=== PATIENT | male | born 1975 | race Caucasian/White ===

== ENCOUNTER 2025-04-09 10:59 | Outpatient (AMB) | payer OTHER, SELFPAY ==
--- NOTE | 2025-04-09 10:52 | A.OFFPC_ITS ---
Vital Signs 04/09/25 11:00 Height 5 ft 10 in Weight 257 lb BMI 36.9 BP 137/95 H Respiration 16 Pulse 66 Pulse Source Pulse Oximeter Temp 97.7 F Temp Source Temporal Artery Scan Pulse Oximetry (%) 99 Oxygen Delivery Method Room Air Intake Visit Reasons: establish care; dysphagia 2nd to trauma Clinical Resource Coordinator Required: No Accompanied by: Self / Same As Patient Allergies No Known Allergies Allergy (Verified 04/09/25 11:11) Medication List - Last Reconciled 04/09/25 by Connie Daniel PA-C allopurinol 300 mg PO DAILY colchicine 0.3 mg PO DAILY ergocalciferol (vitamin D2) 1,250 mcg PO Q2W omega 5-rgn-amt-fish oil 60-90-500 mg (Fish Oil) 1 cap PO DAILY Tobacco use date assessed: 04/09/25 Dental Screening Dental Screen Date: 04/09/25 Did you have a dental visit in the last 12 months?: Yes Did you have a dental problem in the last 6 months where you did not have access to dental care?: No Was dental information given to patient?: Patient has dentist HPI establish care; dysphagia 2nd to trauma HPI Details The patient is a 49-year-old male presenting to establish a new primary care provider. He would also like to discuss throat discomfort, a mole in the armpit, and hemorrhoids. He reports the throat discomfort originated after an incident involving a lodged needle-like bone while consuming fried chicken several years ago and maintains the discomfort continues without any recent evaluations like endoscopy. He associates flare-ups with his practice of [employer]. The mole in his armpit has developed over the past year, diverging from his typical mole growth patterns. The patient notes having hemorrhoids, with acute exacerbation of symptoms recently, although he denies bleeding. Patient's past medical history includes a longstanding history of chronic kidney disease stage 3, with nephrology monitoring kidney function markers. He's currently on allopurinol, vitamin D supplements, and omega-3 supplements. Social History - Practices [employer], including exposur e to activities involving choke holds - Maintains an exercise regimen, running five times per week [facility] Medical History (Updated 04/09/25 @ 11:43 by Connie Daniel PA-C) Vitamin D deficiency Hyperlipidemia LDL goal <100 Gout BMI 36.0-36.9,adult CKD stage 3b, GFR 30-44 ml/min Hemorrhoid Atypical mole Establishing care with new doctor, encounter for Throat discomfort Family History Father Diabetes Mother Pancreatic cancer Social History Housing: House Alcohol intake: current Alcohol intake frequency: does not drink Patient Tobacco Use Status: Former Tobacco user service: No Current occupational status: employed Cognitive needs: Yes (uses cane when has gout flare up) Hearing needs: No Vision needs: Yes (rx glasses) Questionnaire PHQ-9 Over the last 2 weeks, how often have you been bothered by any of the following problems? 1. Little interest or pleasure in doing things: not at all 2. Feeling down, depressed, or hopeless: not at all 3. Trouble falling or staying asleep, or sleeping too much: not at all 4. Feeling tired or having little energy: not at all 5. Poor appetite or overeating: not at all 6. Feeling bad about yourself - or that you are a failure or have let yourself or your family down: not at all 7. Trouble concentrating on things, such as reading the newspaper or watching television: not at all 8. Moving or speaking so slowly that other people could have noticed. Or the opposite - being so fidgety or restless that you have been moving around a lot more than usual: not at all 9. Thoughts that you would be better off or of hurting yourself in some way: not at all Total score: 0 Depression Screening Interpretation: Negative Depression Screening Done: Yes 88878 - PHQ-9 Billing: Yes Source: Developed by Drs. Trev Smith, Lovely Lan, Tej Riojas and colleagues, with an educational atul from [employer]. Thrive Questionnaire Date Thrive assessed: 04/09/25 I am a: Patient What is your living situation today?: I have a steady place to live Within the past 12 months, did the food you bought not last and you didn't have the money to get more?: Never true Within the past 12 months, did you worry whether your food would run out before you got money to buy more?: Never true Do you have trouble paying for medicines?: No Do you have trouble getting transportation to medical appointments?: No Do you have trouble paying your heating and electricity bill?: No Do you have trouble taking care of your child, family member or friend?: No Do you have trouble with day-to-day activities such as bathing, preparing meals, shopping, managing finances, etc.?: No Are you currently unemployed and looking for a job?: No Are you interested in more education?: No Please select the resources that you would like help with: None THRIVE Score: 0 AUDIT C Alcohol Use Questionnaire (AUDIT-C) 1. How often do you have a drink containing alcohol?: Never 3. How often do you have six or more drinks on one occasion?: Never Total Score: 0 Score Reviewed/Action Taken: No LINDY-7 AMB Questionnaire LINDY-7 Date LINDY - 7 assessed: 04/09/25 Feeling nervous, anxious, or on edge: 0 = Not at all Not being able to stop or control worryin = Not at all Worrying too much about different things: 0 = Not at all Trouble relaxin = Not at all Being so restless that it is hard to sit still: 0 = Not at all Becoming easily annoyed or irritable: 0 = Not at all Feeling afraid as if something awful might happen: 0 = Not at all Total LINDY-7 score (0-4 normal; 5-9 mild; 10-14 moderate; 15-21 severe): 0 Source: Developed by Drs. Trev Smtih, Lovely Lan, Tej Riojas and colleagues, with an educational atul from [employer]. LINDY-7 Assessment Billing LINDY-7 Assessment Tool: LINDY-7 Assessment 04583 Review of Systems Const Details: - ENT: Reports chronic feeling of a foreign object in throat - Gastrointestinal: Denies difficulty swallowing; Reports presence of hemorrhoids without associated bleeding - Skin: Reports atypical mole growth under the right armpit Physical exam (Primary Care) Vital Signs: Last Vital Signs Temp 97.7 F 04/09/25 11:00 Pulse 66 04/09/25 11:00 Resp 16 04/09/25 11:00 BP 137/95 H 04/09/25 11:00 Pulse Ox 99 04/09/25 11:00 Oxygen Delivery Method Room Air 04/09/25 11:00 Care Plan Goal for BP management: <140/90 mildly elevated patient will monitor his blood pressure and return with blood pressure log at his next appoint BMI result Body Mass Index 36.9 BMI Assessment/Plan discussion: High BMI High, discussed plan: lifestyle, weight reduction, dietary, physical activity and alcohol moderation Tobacco/Smoking Status: Tobacco use Status Tobacco use date assessed 04/09/25 04/09/25 10:53 Patient Tobacco Use Status Former Tobacco user 04/09/25 11:06 PHQ-9: PHQ-9 Score PHQ-9: Total score 0 04/09/25 11:06 Depression Screening Interpretation: Negative Thrive Assessment: Date of Thrive Assessment Date Thrive assessed 04/09/25 04/09/25 10:53 Const Other: Appearance: Alert. Oriented X3. No acute distress. Head: Normal external exam. Normocephalic. Atraumatic. Eyes: Pupils are equal, round, and reactive to light. Extraocular movements intact. Conjunctiva and sclera normal. Eyelids normal. Ears: External auditory canal normal. Tympanic membranes normal. Patient reports feeling a little discomfort in the ear canal. Throat: Pharynx normal. Uvula midline. Moist mucous membranes. Patient reports feeling like there is something on the side of the throat, possibly due to a needle-like bone stuck for years. Neck: Normal inspection. Neck supple. Full range of motion. No adenopathy. Thyroid Normal. No meningeal signs. No neck mass noted. Patient reports discomfort in the neck area. Cardiovascular: Normal heart rate and rhythm. Heart sound normal. No murmurs noted. Pulses normal throughout. Respiratory: No respiratory distress. Painless inspiration. Breath sounds normal. No wheezes/rales/rhonchi noted. Chest nontender. No accessory muscle usage noted or decreased air movement noted. Abdomen: Soft and nontender. No distention noted. No organomegaly noted. Back: No costovertebral angle tenderness. Full range of motion noted. Skin: Skin warm and dry. Normal skin color. Normal skin turgor. No rashes/lesions/lacerations noted. Patient reports a mole under the right armpit that has grown over the past year and appears different. Extremities: No lower extremity edema. Extremities exhibit normal range of motion. Extremities nontender. Neuro: Oriented X 3. No motor deficit. No sensory deficit. Reflexes normal. Coding Level of Care Code New Pt Level 4 (67001) Complex EM visit Add On G2211 Diagnoses Establishing care with new doctor, encounter for Z76.89 Throat discomfort R07.0 Atypical mole D22.9 Hemorrhoid K64.9 CKD stage 3b, GFR 30-44 ml/min N18.32 BMI 36.0-36.9,adult Z68.36 Gout M10.9 Vitamin D deficiency E55.9 Additional Codes PHQ-9 - 65051 - PHQ-9 Billing: Yes ([id number]) LINDY-7 Assessment Billing - LINDY-7 Assessment Tool: LINDY-7 Assessment 39654 ([id number]) Assessment & Plan Assessment & Plan (1) Establishing care with new doctor, encounter for: Code(s): Z76.89 - Persons encountering health services in other specified circumstances Category: Medical (2) Throat discomfort: Code(s): R07.0 - Pain in throat Category: Medical Plan: Plan: Schedule a CT scan of the neck to check for the presence of foreign body. Evaluate kidney function for the use of IV contrast. Possible refer to ENT if a foreign object is found. Condition is chronic and stable continue to monitor. (3) Atypical mole: Code(s): D22.9 - Melanocytic nevi, unspecified Category: Medical Plan: Plan: Referred to dermatology to evaluate abnormal mole for further assessment and management. Condition is chronic and stable continue to monitor. (4) Hemorrhoid: Code(s): K64.9 - Unspecified hemorrhoids Category: Medical Plan: Plan: Conservative management with sitz baths and topical treatment. Monitor for symptoms; consider surgery if no improvement. I discussed this case with Dr. Ramsey the general surgeon reported patient can call for an appointment next week. (5) CKD stage 3b, GFR 30-44 ml/min: Code(s): N18.32 - Chronic kidney disease, stage 3b Category: Medical Plan: Plan: Monitor renal function, coordinate with check cashier, and ensure testing suitability. Condition is chronic and stable will continue to monitor. (6) BMI 36.0-36.9,adult: Code(s): Z68.36 - Body mass index [BMI] 36.0-36.9, adult Category: Medical Plan: Patient to improve diet and exercise regimen. Condition is chronic and stable will continue to monitor. (7) Gout: Code(s): M10.9 - Gout, unspecified Category: Medical Plan: Plan: Continue allopurinol therapy; monitor and adjust management as needed. Condition is chronic and stable continue to monitor. (8) Vitamin D deficiency: Code(s): E55.9 - Vitamin D deficiency, unspecified Category: Medical Plan: Plan: Maintain supplementation and check levels periodically. Condition is chronic and stable continue to monitor. Plan Plan Patient was informed and verbally consented to the use of an ambient scribe for clinic note documentation during this visit. 1. Throat Discomfort Plan: Schedule a CT scan of the neck to check for the presence of foreign body. Evaluate kidney function for the use of IV contrast. Possible refer to ENT if a foreign object is found. 2. Melanocytic Nevus Of Axilla Plan: Referred to dermatology to evaluate abnormal mole for further assessment and management. 3. Hemorrhoids With Thrombosis Plan: Conservative management with sitz baths and topical treatment. Monitor for symptoms; consider surgery if no improvement. 4. Chronic Kidney Disease Stage 3 Plan: Monitor renal function, coordinate with check cashier, and ensure testing suitability. 5. Gout Plan: Continue allopurinol therapy; monitor and adjust management as needed. 6. Vitamin D Deficiency Plan: Maintain supplementation and check levels periodically. I discussed with the patient the diagnostic plan to include a CT scan to evaluate his throat discomfort and the potential foreign object. We reviewed the referral for dermatologic evaluation for his atypical axillary mole. We addressed hemorrhoidal management with conservative approaches recommended initially, involving sitz baths and topical medications, and the potential need for surgical intervention if symptoms persist. I highlighted kidney considerations amid his chronic condition, specifically assessing suitability for imaging contrast media. I outlined the chronic management approach for gout, and vitamin D deficiency through ongoing medication and lifestyle adjustments. Follow-up plans were developed with an emphasis on symptom monitoring and scheduling timely subsequent appointments post-interventions. The necessity of avoidance of NSAIDs and proper self-monitoring was emphasized. Orders: Orders C Reactive Protein Today Z00.00 - Encounter for general adult medical examination without abnormal findings Lipid Panel Today Z00.00 - Encounter for general adult medical examination without abnormal findings Magnesium Today Z00.00 - Encounter for general adult medical examination without abnormal findings TSH reflex Free T4 Today Z00.00 - Encounter for general adult medical examination without abnormal findings CT soft tissue neck w IV con Today R07.0 - Pain in throat, Z76.89 - Persons encountering health services in other specified circumstances PSA,Total (Free>4and<10) Today Z00.00 - Encounter for general adult medical examination without abnormal findings Hemoglobin A1c Today Z00.00 - Encounter for general adult medical examination without abnormal findings Liver Panel Today Z00.00 - Encounter for general adult medical examination without abnormal findings Vitamin B12 and Folate Today Z00.00 - Encounter for general adult medical examination without abnormal findings Vitamin D 25-OH Total Today Z00.00 - Encounter for general adult medical examination without abnormal findings Comprehensive [place]. Panel Fast Today Z00.00 - Encounter for general adult medical examination without abnormal findings Complete Blood Count Auto Diff Today Z00.00 - Encounter for general adult medical examination without abnormal findings Referrals Dermatology Referral D22.9 - Melanocytic nevi, unspecified General Surgery Referral K64.9 - Unspecified hemorrhoids Medications: New hydrocortisone-pramoxine 1-1 % (Proctofoam HC) 1 appl MO QID PRN 10 grams 3RF hemorrhoids Patient Instructions: - Schedule CT scan and send us any recent blood work records. - Call dermatology regarding mole evaluation appointment. - Use sitz baths and topical agents to help hemorrhoids; avoid NSAIDs. - Maintain current medication regimen. - Follow up with all ongoing healthcare needs including kidney and gout management. - Monitor symptoms closely and seek care for any changes or worsening conditions. - Return for follow-up after diagnostic studies and procedures.
[2025-04-09 11:00] VITALS: BP 137/95; PULSE 66; RESP 16; TEMP 36.5; O2SAT 99; BMI 36.9
--- OUTSIDE RECORDS SUMMARY | 2025-04-09 11:04 | XMS_ITS | Clinical Summary ---
Author Organization [facility] Facility Address [address] [place] [address] Care Team Providers Care Medical Transcriber Name Role Phone Trev Norman MD Primary Care Provider Allergies No known active allergies Medications Multiple Vitamins-Minera ls (VITAMIN D3 COMPLETE PO) Take by mouth Active colchicine 0.6 MG tablet Active ergocalciferol 1.25 MG (09037 UT) capsule TAKE 1 CAPSULE (50,000 UNITS TOTAL) BY MOUTH EVERY 14 DAYS 6 capsule 1 08/04/2024 Active lisinopril 10 MG tablet Take 1 tablet (10 mg total) by mouth 1 (one) time each day 90 tablet 5 12/31/2024 6 Active allopurinol (ZYLOPRIM) 300 MG tablet TAKE 1 TABLET BY MOUTH 1 TIME EACH DAY. 90 tablet 1 02/11/2025 Active Active Problems Problem Noted Date Diagnosed Date Chronic kidney disease due to benign hypertensio n 10/03/2023 Stage 3a chronic kidney disease 04/05/2022 Chronic kidney disease stage 3 01/26/2021 Gout 01/26/2021 Encounters Date Type Department Care Team Description 02/11/2025 Refill [facility] [address] [facility] [address] [place] [phone] Jordan Sanchez MD from Last 3 Months Family History Medical History Relation Comments Kidney disease Sibling 1 kidney Relation Status Comments Sibling Social History Tobacco Use Types Packs/Day Years Used Date Smoking Tobacco: Former Cigarettes Smokeless Tobacco: Never Tobacco Cessation:Counseling Given: Not Answered Comments:Smoking History Info:Every day Alcohol Use Standard Drinks/Week Comments Never 0 (1 standard drink = 0.6 oz pur e alcohol) Sex and Gender Information Value Date Recorded Sex Assigned at Male 10/03/2023 7:59 AM EST Legal Sex Male 5:26 PM EST Gender Identity Male 10/03/2023 7:59 AM EST Sexual Orientation Straight 10/03/2023 7: 59 AM EST Last Filed Vital Signs Vital Sign Reading Time Taken Comments Blood Pressure 120/82 12/31/2024 1:19 PM EST Pulse 81 12/31/2024 1:19 PM EST Temperature - - Respiratory Rate - - Oxygen Saturation 96% 12/31/2024 1:19 PM EST Inhaled Oxygen Concentration - - Weight 117 kg (258 lb 9.6 oz) 12/31/2024 1:19 P M EST Height 182.9 cm (6') 01/28/2020 12:00 PM EDT Body Mass Index 35.07 01/28/2020 12:00 PM EDT Plan of Treatment Upcoming Encounters Date Type Department Care Team (Late st Contact Info) Description 01/06/2026 1:00 PM EST Office Visit [facility] [address] [phone] Jordan Sanchez MD [address] [phone] Health Maintenance Due Date Last Done Comments Hepatitis B Vaccine (1 of 3 - 19+ 3-dose series) 1995 Pneumococcal Vaccine: Peds ( 0 to 5 Years) and At-Risk Patients (6 to 49 Years) (2 of 2 - PCV) 04/15/2015 04/15/2014 Influenza Vaccine (Season Ended) 2025 08/23/2021, 10/16/2016, 08/26/2015 Pneumococcal Vaccine: 50+ Years Discontinued 4 Insurance [place] [employer] Care Teams Medical Transcriber Relationship Specialty Start Date End Date Trev Norman MD [address] [place] [phone] PCP - General 11/28/20
== END 2025-04-09 11:35 | disposition home or self-care (01) ==
LOC: HO.HMCSH 10:59
PROVIDERS: PCP Internal Medicine; Visit Provider Physician Assistant Medical
DX: Z76.89 Persons encountering health services in other specified circumstances (principal); R07.0 Pain in throat; D22.9 Melanocytic nevi, unspecified; K64.9 Unspecified hemorrhoids; N18.32 Chronic kidney disease, stage 3b; Z68.36 Body mass index [BMI] 36.0-36.9, adult; M10.9 Gout, unspecified; E55.9 Vitamin D deficiency, unspecified

== ENCOUNTER → 2025-04-09 10:59 | Outpatient (BNVA) | payer OTHER, SELFPAY | PROVIDERS: PCP Internal Medicine; Visit Provider Physician Assistant Medical | DX: Z76.89 Persons encountering health services in other specified circumstances (principal); R07.0 Pain in throat; D22.5 Melanocytic nevi of trunk; K64.9 Unspecified hemorrhoids; N18.32 Chronic kidney disease, stage 3b; M10.9 Gout, unspecified; E55.9 Vitamin D deficiency, unspecified; Z13.30 Encounter for screening examination for mental health and behavioral disorders, unspecified | CPT/HCPCS: 96127 ==

== ENCOUNTER 2025-05-17 11:01 | Outpatient (REF) | payer OTHER, SELFPAY ==
--- OUTSIDE RECORDS SUMMARY | 2025-05-17 11:55 | XMS_ITS | Clinical Summary ---
Author Organization [facility] Facility Address [address] [facility] [address] [place] [id number] Care Team Providers Care Senior Applications Architect Name Role Phone Trev Norman MD Primary Care Provider [phone] Allergies No known active allergies Medications Multiple Vitamins-Minera ls (VITAMIN D3 COMPLETE PO) Take by mouth Active colchicine 0.6 MG tablet Active ergocalciferol 1.25 MG (86757 UT) capsule TAKE 1 CAPSULE (50,000 UNITS [...] kidney disease stage 3 01/26/2021 Gout 01/26/2021 Family History Medical History Relation Comments Kidney [...] kg (258 lb 9.6 oz) 12/31/2024 1:19 PM EST Height 182.9 cm (6') 01/28/2020 12:00 PM EDT Body Mass Index 35.07 01/28/2020 12:00 PM EDT Plan of Treatment Upcoming Encounters Date Type Department Care Team (Late st Contact Info) Description 01/06/2026 1:00 PM EST Office Visit [facility] [address] [phone] Jordan Sanchez MD [address] [phone] Health Maintenance Due Date Last Done Comments Hepatitis B Vaccine (1 of 3 - 19+ 3-dose series) 1995 Pneumococcal Vaccine: Peds ( 0 to 5 Years) and At-Risk Patients (6 to 49 Years) (2 of 2 - PCV) 04/15/2015 04/15/2014 Influenza Vaccine (Season Ended) 2025 08/23/2021, 10/16/2016, 08/26/2015 Pneumococcal Vaccine: 50+ Years Discontinued 4 Insurance [facility] Care Teams Senior Applications Architect Relationship Specialty Start Date End Date Trev Norman MD [address] [place] [phone] PCP - General 11/28/20
[2025-05-17 13:24] LABS: MANUAL DIFF FLAG NO
[2025-05-17 13:33] LABS: Basophils Absolute Auto 0.1 X10*3/uL (0.0-0.2); Basophils Percent Auto 0.8 % (0-2); Eosinophils Absolute Auto 0.1 X10*3/uL (0.0-0.4); Eosinophils Percent Auto 1.6 % (0-4); Hematocrit 45.9 % (42.0-52.0); Hemoglobin 15.5 g/dl (14.0-18.0); Imm Gran Abs Auto 0.05 X10*3/uL (0.00-0.03); Imm Gran Pct Auto 0.7 % (0.0-0.4); Lymphocytes Absolute Auto 2.9 X10*3/uL (1.2-4.9); Mean Corpuscular HGB Conc 33.8 g/dl (31.0-36.0); Mean Corpuscular Hemoglobin 31.4 pg (27.0-33.0); Mean Corpuscular Volume 92.9 fL (80.0-98.0); Mean Platelet Volume 10.5 fL (9.4-12.4); Monocytes Absolute Auto 0.7 X10*3/uL (0.1-1.2); Monocytes Percent Auto 8.6 % (2-11); Neutrophils Absolute Auto 3.9 x10*3/uL (2.0-8.3); Neutrophils Percent Auto 50.3 % (45-73); Platelet Count 213 X10*3/uL (160-400); Red Blood Count 4.94 X10*6/uL (4.60-5.80); Red Cell Distribution Width 13.2 % (11.0-16.0); White Blood Count 7.7 X10*3/uL (4.8-10.8)
[2025-05-17 13:41] LABS: Estimated Average Glucose 105 mg/dL; Hemoglobin A1c % 5.3 % (<6.0)
[2025-05-17 13:50] LABS: Alanine Aminotransferase 62 U/L (0-40); Albumin Level 4.4 g/dL (3.5-5.0); Alkaline Phosphatase 80 U/L (39-117); Anion Gap 12 (12-20); Aspartate Amino Transferase 36 U/L (5-37); Bilirubin Direct 0.2 mg/dL (0.0-0.5); Bilirubin Total 0.6 mg/dL (0.0-1.0); Blood Urea Nitrogen 27 mg/dL (9-16); C Reactive Protein 0.33 mg/dL (< or = 0.50); Calcium 9.2 mg/dL (8.4-10.2); Carbon Dioxide 24 mmol/L (22-29); Chloride 108 mmol/L (96-108); Cholesterol 237 mg/dL (<200); Estimated Glomerular Filt Rate 50; Glucose Fasting 98 mg/dL (60-99); HDL Cholesterol 42 mg/dL (>40); LDL Cholesterol Calculated 156 mg/dL (<100); Magnesium 2.1 mg/dL (1.6-2.6); Potassium 4.3 mmol/L (3.3-5.1); Sodium 140 mmol/L (135-145); Total Protein 7.7 g/dL (6.5-8.0); Triglycerides 196 mg/dL (<150)
[2025-05-17 14:00] LABS: PSA,Total (Free>4and<10) 2.03 ng/mL (0.00-4.00)
[2025-05-17 14:14] LABS: Folate 10.2 ng/mL (> or = 4.0); Vitamin B12 664 pg/mL (200-900)
[2025-05-17 14:22] LABS: TSH reflex Free T4 1.57 uIU/mL (0.32-4.0); Vitamin D 25-OH Total 47.4 ng/mL (>30)
== END 2025-05-17 11:02 | disposition home or self-care (01) ==
LOC: HO.HMGCLDS 11:01
PROVIDERS: PCP Physician Assistant Medical; Visit Provider Physician Assistant Medical
DX: Z00.00 Encounter for general adult medical examination without abnormal findings (principal); Z12.5 Encounter for screening for malignant neoplasm of prostate; Z13.1 Encounter for screening for diabetes mellitus; Z13.6 Encounter for screening for cardiovascular disorders
CPT/HCPCS: 36415; 80053; 80061; 80076; 82248; 82306; 82607; 82746; 83036; 83735; 84153; 84443; 85025; 86140

== ENCOUNTER 2025-05-26 15:00 | Outpatient (REF) | payer OTHER, SELFPAY ==
--- NOTE | ~2025-05-26 | CT_ITS ---
CLINICAL HISTORY: R07.0 - Pain in throat Exam: CT soft tissue neck with IV contrast Comparison: None provided Findings: No abnormal soft tissue mass is identified within the neck. The soft tissues of the nasopharynx, oropharynx, hypopharynx and larynx are within normal limits. The parotid, submandibular and thyroid glands demonstrate nothing unusual. Unremarkable vasculature. No lymphadenopathy. Limited intracranial evaluation demonstrates no acute finding. The visualized paranasal sinuses and mastoid air cells are essentially clear. Lung apices are unremarkable allowing for moderate motion blurring. There are mild osseous degenerative changes, no lytic or blastic lesions are evident. Impression: No acute finding. No CT finding to account for throat pain. This document has been electronically signed by: Pretty Betancourt MD on 05/28/2025 14:59:02
--- OUTSIDE RECORDS SUMMARY | 2025-05-26 15:25 | XMS_ITS | Data Portability ---
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 Hearing? down--not to level of hearing aids yet. Not available 11/02/2022 10:16:26 03/13/2024 03/13/2024 Only needs once a year visits as has tex mcdonnell uses occasionally and sees Gant in wintertime 2023 works out core 20 mins weekly training aleja moreira Not available 03/13/2024 10:42:54 Plan of Treatment Reminders Order Date Submit Date Provider Last Modified By Organization Details Last Modified Time Details Appointments None recorded. Lab uric acid, serum or plasma 2023 [facility], [address] [place] [address], [address], 4 10:01:57 BMP, serum or plasma 2023 024 [facility], [address] [place] [address], [address], 4 10:01:55 HbA1c (hemoglobin A1c), blood 2023 024 [facility], [address] [place] [address], [address], 4 11:54:20 CBC 2023 024 [facility], [address] [facility], [place], [address], 11:01:41 Referral None recorded. Procedures colonoscopy procedure (PROC) 2021 022 [email or web address] [facility], [address] [place], [address], 13:44:18 Surgeries None recorded. Imaging None recorded. Medication Orders lisinopril 10 mg tablet 2022 023 [email or web address] [id number], [address] [place], [address], 4 12:34:09 diltiazem CD 120 mg capsule,ext ended release 24 hr 2022 023 [email or web address] [id number], [address] [place], [address], 11:12:23 Patient TargetsNo targets recorded. Patient Instructions Encounter Date Encounter Id Patient Instructions Last Modified By Organization Details Last Modified Time 11/02/2022 [id number] Well Visit, Ages 18 to 65: Care Instructions Not available 11/02/2022 10:17:07 08/13/2023 [id number] medicines to avoid with kidney disease: care instructions [email or web address] Not available 08/13/2023 10:51:18 high blood pressure: care instructions rvigderman Not available 08/13/2023 10:51:17 learning about high blood pressure rvigderman Not available 08/13/2023 10:51:18 09/02/2023 [id number] high blood pressure: care instructions [email or web address] Not available 09/22/2023 17:06:18 learning about high blood pressure rvigderman Not available 09/22/2023 17:06:18 03/13/2024 [id number] Well Visit, Ages 18 to 65: Care Instructions [email or web address] Not available 03/13/2024 10:45:28 Reason for Referral None Reported. Results Created Date Observation Date Name Description Value Unit Range Abnormal Flag Note LastModifiedBy Organization Detail LastModifiedTime 03/16/20 24 03/16/2024 CBC WBC 7.62 K/ L 4.23-9 .07 Not Available [address], [address], 03/16/2024 11:01:41 03/16/20 24 03/16/2024 CBC RBC 4.87 M/ L 4.63-6 .08 Not Available [address], [address], 03/16/2024 11:01:41 03/16/20 24 03/16/2024 CBC HGB 15.4 g/dL 13.7-1 7.5 Not Available [address], [address], 03/16/2024 11:01:41 03/16/20 24 03/16/2024 CBC HCT 45.5 % 40.1-5 1.0 Not Available [address], [address], 03/16/2024 11:01:41 03/16/20 24 03/16/2024 CBC MCV 93.4 fL 79.0-9 2.2 high Not Available [address], [address], 03/16/2024 11:01:41 03/16/20 24 03/16/2024 CBC MCH 31.6 pg 25.7-3 2.2 Not Available [address], [address], 03/16/2024 11:01:41 03/16/20 24 03/16/2024 CBC MCHC 33.8 g/dL 32.3-3 6.5 Not Available [address], [address], 03/16/2024 11:01:41 03/16/20 24 03/16/2024 CBC plt 222 K/ L 163-33 7 Not Available [address], [address], 03/16/2024 11:01:41 03/16/20 24 03/16/2024 CBC MPV 10.6 fL 9.4-12 .4 Not Available [address], [address], 03/16/2024 11:01:41 03/16/20 24 03/16/2024 CBC neut% 45.4 % 34.0-6 7.9 Not Available [address], [address], 03/16/2024 11:01:41 03/16/20 24 03/16/2024 CBC neut# 3.46 1.78-5 .38 Not Available [address], [address], 03/16/2024 11:01:41 03/16/20 24 03/16/2024 CBC lymph % 42.0 % 21.8-5 3.1 Not Available [address], [address], 03/16/2024 11:01:41 03/16/20 24 03/16/2024 CBC lymph # 3.20 K/ L 1.32-3 .57 Not Available [address], [address], 03/16/2024 11:01:41 03/16/20 24 03/16/2024 CBC mono% 10.4 % 5.3-12 .2 Not Available [address], [address], 03/16/2024 11:01:41 03/16/20 24 03/16/2024 CBC mono# 0.79 0.30-0 .82 Not Available [address], [address], 03/16/2024 11:01:41 03/16/20 24 03/16/2024 CBC eo% 1.0 % 0.8-7. 0 Not Available [address], [address], 03/16/2024 11:01:41 03/16/20 24 03/16/2024 CBC eo# 0.08 0.04-0 .54 Not Available [address], [address], 03/16/2024 11:01:41 03/16/20 24 03/16/2024 CBC baso% 0.5 % 0.2-1. 2 Not Available [address], [address], 03/16/2024 11:01:41 03/16/20 24 03/16/2024 CBC baso# 0.04 0.00-0 .08 Not Available [address], [address], 03/16/2024 11:01:41 03/16/20 24 03/16/2024 CBC RDW-CV 13.2 % 11.6-1 4.4 Not Available [address], [address], 03/16/2024 11:01:41 03/16/20 24 03/16/2024 CBC Ig% 0.700 % 0.000- 1.500 Ig % >0.5 Indic ates possi ble Left Shift Not Available [address], [address], 03/16/2024 11:01:41 03/16/20 24 03/16/2024 CBC Ig# 0.050 0.000- 0.093 Not Available [address], [address], 03/16/2024 11:01:41 03/16/20 24 03/16/2024 CBC NRBC% 0.0 % 0.0-0. 2 Not Available [address], [address], 03/16/2024 11:01:41 03/16/20 24 03/16/2024 CBC NRBC# 0.000 0.000- 0.012 Not Available [address], [address], 03/16/2024 11:01:41 03/16/20 24 03/16/2024 HGB A1C hemoglobin A1C 5.4 % 4.8-6. 0 Goal: <7% in Patie nts with Diabe yamel An A1c betwe en 5.7-6 .4% is ident ified as pre-d iabet es and sugge sts risk for progr essio n to diabe yamel Two a1c value s of 6.5% or highe r is consi stent with a diagn osis of diabe yamel but may need furth er confi rmati on Not Available [address], [address], 03/16/2024 11:54:20 03/16/20 24 03/16/2024 HGB A1C estimated average glucose 108.3 mg/dL Not Available [address], [address], 03/16/2024 11:54:20 03/16/20 24 03/17/2024 BASIC METAB OLIC PANEL glucose 99 mg/dL 70-100 Not Available [address], [address], 03/17/2024 10:01:55 03/16/20 24 03/17/2024 BASIC METAB OLIC PANEL BUN 22 mg/dL 7-18 high Not Available [address], [address], 03/17/2024 10:01:55 03/16/20 24 03/17/2024 BASIC METAB OLIC PANEL creatinine 1.7 mg/dL 0.8-1. 3 high Not Available [address], [address], 03/17/2024 10:01:55 03/16/20 24 03/17/2024 BASIC METAB OLIC PANEL B/C 12.9 ratio Not Available [address], [address], 03/17/2024 10:01:55 03/16/20 24 03/17/2024 BASIC METAB OLIC PANEL GFR 49.4 mL/mi n abnormal >=60m L/min - Merna l or midly reduc ed <60mL /min- Decre ased kidne y funct ion <15mL /min - Kidne y failu re [facility] calcu lates estim ated Glome rular Filtr ation Rate (eGFR ) using the Chron ic Kidne y Disea se Epide miolo gy Colla borat ion (CKD- EPI) Equat ion (Donaldo baron et. al 2020) as recom mega d by the Natio nal Kidne y Found ation . eGFR is based on age, serum creat inine , and sex. CKD-E PI does not calcu late eGFR by race, does not apply to child constance (age <18 years ), and shoul d not be used in pregn parmjit. Not Available [address], [address], 03/17/2024 10:01:55 03/16/20 24 03/17/2024 BASIC METAB OLIC PANEL sodium 140 mmol/ L 136-14 5 Not Available [address], [address], 03/17/2024 10:01:55 03/16/20 24 03/17/2024 BASIC METAB OLIC PANEL potassium 5.0 mmol/ L 3.5-5. 1 Not Available [address], [address], 03/17/2024 10:01:55 03/16/20 24 03/17/2024 BASIC METAB OLIC PANEL chloride 103 mmol/ L 96-107 Not Available [address], [address], 03/17/2024 10:01:55 03/16/20 24 03/17/2024 BASIC METAB OLIC PANEL anion gap 12.9 5.0-15 .0 Not Available [address], [address], 03/17/2024 10:01:55 03/16/20 24 03/17/2024 BASIC METAB OLIC PANEL CO2 24 mmol/ L 21-32 Not Available [address], [address], 03/17/2024 10:01:55 03/16/20 24 03/17/2024 BASIC METAB OLIC PANEL calcium 9.7 mg/dL 8.5-10 .3 Not Available [address], [address], 03/17/2024 10:01:55 03/16/20 24 03/17/2024 URIC ACID uric acid 8.0 mg/dL 3.5-7. 2 high Not Available [address], [address], 03/17/2024 10:01:57 Result Notes None recorded. Problems Name Problem SNOMED Code Status Onset Date Resolution Date Notes Provider Name and Address Organization Details Recorded Time Secondar y hyperpar athyroid ism 16313917 Active 2018 coded 05/19/19 Wellness Not Available [facility] 0 10:17:15 Atrophy of right kidney 536703195 Active 2021 Bonny Norman MD [address] [place] [address], [address] , [facility] 2 08:58:46 Mixed hyperlip idemia 259947123 Completed 200304/26/2015 Bonny Norman MD [address] [place] [address], [address] , [facility] 5 08:18:26 Benign neoplasm of skin of trunk, excludin g scrotum Completed 200703/25/2013 Bonny Norman MD [address] [place] [address], [address] , [facility] 5 08:18:26 Essentia l hyperten genna 16128055 Completed 200504/26/2015 Bonny Norman MD [address] [place] [address], , [facility] 5 08:18:27 Renal failure syndrome 34735197 Completed 200503/25/2013 Bonny Norman MD [address] [place] [address], , [facility] 5 08:18:27 Chronic kidney disease stage 2 816494494 Completed 200603/25/2013 Bonny Norman MD [address] [place] [address], , [facility] 5 08:18:27 Gout 40145816 Active 2004 Not Available [facility] 0 10:17:15 Glomerul oscleros is 504911996 Completed 200303/25/2013 Bonny Norman MD [address] [place] [address], , [facility] 5 08:18:27 Refracto ry migraine with aura 644314603 Active 2005 Not Available [facility] 0 10:17:15 Chronic gouty nephropa thy 863326964 Completed 200603/25/2013 Bonny Norman MD [address] [place] [address], , [facility] 5 08:18:26 Benign essentia l hyperten genna 4491212 Completed 200603/25/2013 Bonny Norman MD [address] [place] [address], , [facility] 5 08:18:27 Myopia 35562489 Completed 200603/25/2013 Bonny Norman MD [address] [place] [address], , [facility] 5 08:18:27 Non-obst ructive reflux-a ssociate d chronic pyelonep hritis 292083554 Completed 200503/25/2013 Bonny Norman MD [address] [place] [address], [address] , [facility] 5 08:18:27 Chronic kidney disease stage 3 691232045 Active 2007 runs about 59, very very mild Not Available [facility] 0 10:17:15 Retentio n of urine 268905151 Completed 200703/25/2013 Bonny Norman MD [address] [place] [address], [address] , [facility] 5 08:18:27 conditio n affectin g obstetri urmila care of mother 415802069 Completed 200503/25/2013 Bonny Norman MD [address] [place] [address], [address] , [facility] 5 08:18:27 Clinical finding Completed 200703/25/2013 Bonny Norman MD [address] [place] [address], [address] , [facility] 5 08:18:27 Gouty arthropa thy 380778916 Completed 200204/09/2013 Bonny Norman MD [address] [place] [address], [address] , [facility] 5 08:18:26 Enterobi asis 649625143 Completed 200303/25/2013 Bonny Norman MD [address] [place] [address], [address] , [facility] 5 08:18:26 Blood chemistr y outside referenc e range 068201126 Completed 200503/25/2013 Bonny Norman MD [address] [place] [address], [address] , [facility] 5 08:18:27 Acute conjunct ivitis 78115353 Completed 200703/25/2013 Bonny Norman MD [address] [place] [address], [address] , [facility] 5 08:18:27 Radiolog y result abnormal 998908548 Completed 200703/25/2013 Bonny Norman MD [address] [place] [address], [address] , [facility] 5 08:18:27 Sprain of knee and leg Completed 200403/25/2013 Bonny Norman MD [address] [place] [address], [address] , [facility] 5 08:18:27 Mononeur itis 04985067 Completed 200503/25/2013 Bonny Norman MD [address] [place] [address], [address] , [facility] 5 08:18:26 Notes:Some problems listed i n Documents: #[id number], #[id number], #[id number], #[id number] could not be added to this patient's chart. Please review these documents and add these problems to the patient's chart manually as needed. Problem Notes None recorded. Procedures Surgical History Date Name Laterality Status Provider Name and Address Organization Details Recorded Time 2 COPD Screening Questions completed Unique Hamlin [facility] 11/01/2022 15:48:00 1 COPD Screening Questions completed Bonny Norman MD [address] [place] [address], [address], [facility] 10/20/2021 16:07:04 5 Treatment and Advice completed Yuliya Valente, ABEBA [address] [place], [address], [facility] 01/03/2015 16:55:52 Imaging Results None recorded. Procedure Notes None recorded. Medical Equipment None Reported. 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 04/11 completed Not Available Not Available Not Available benzonatat e 200 mg capsule Take 1 capsule 3 times a day by oral route for 7 days. 12/29 completed Not Available Not Available Not Available Zithromax Z-Maksim 250 mg tablet Take 2 tablets (500 mg) by oral route once daily for 1 day then 1 tablet (250 mg) by oral route once daily for 4 days 2010 active Not Available Not Available Not Avai lable allopurino l 100 mg tablet TAKE 1 TABLET BY MOUTH EVERY DAY 04/01 completed Not Available Not Available Not Available ciprofloxa mamadou 0.3 % eye drops 2007 active Take 2.00 drops 3 times daily Not Available Not Available Not Available lisinopril 10 mg tablet TAKE 1 TABLET BY MOUTH EVERY DAY 04/01 completed Not Available Not Available Not Available polymyxin B sulfate 10,000 unit-trime thoprim 1 mg/mL eye drops PUT 1 DROP INTO AFFECTED EYE EVERY 6 HOURS FOR 5 DAYS 04/11 completed Not Available Not Available Not Available omeprazole 20 mg capsule,de layed release TAKE 1 CAPSULE BY MOUTH EVERY DAY 05/10 completed Not Available Not Available Not Available diltiazem CD 120 mg capsule,ex tended release 24 hr TAKE 1 CAPSULE BY MOUTH EVERY DAY FOR 90 DAYS 09/02 completed Not Available Not Available Not Available allopurino l 300 mg tablet TAKE 1 TABLET BY MOUTH EVERY DAY DIRECTED active Not Available Not Available No t Available ergocalcif ted (vitamin D2) 1,250 mcg (50,000 unit) capsule TAKE 1 CAPSULE (50,000 UNITS TOTAL) BY MOUTH EVERY 14 DAYS 04/01 completed Not Available Not Available Not Available colchicine 0.6 mg tablet TAKE 1 TABLET BY MOUTH EVERY DAY 04/01 completed Not Available Not Available Not Available Boostrix Tdap 2.5 Lf unit-8 mcg-5 Lf/0.5 mL intramuscu lar syringe TO BE ADMINISTE RED BY PHARMACIS T FOR IMMUNIZAT ION 05/10 completed Not Available Not Available Not Available ibuprofen 05/10 completed prn Not Available Not Available Not Available Vitamin D3 unsure of strength 04/30 completed Not Available Not Available Not Available GaviLyte-G 236 gram-22.74 gram-6.74 gram-5.86 gram oral solution 08/13 completed Not Available Not Available Not Available Gardasil 9 (PF) 0.5 mL intramuscu lar suspension TO BE ADMINISTE RED BY PHARMACIS T FOR IMMUNIZAT ION 05/10 completed Not Available Not Available Not Available COVID-19 At-Home Test kit USE DIRECTED 08/13 completed Not Available Not Available Not Available Vitals Date Recorded Body height Body mass index (BMI) Body weight Heart rate Oxygen saturation Oxygen saturation in Arterial blood by Pulse oximetry Systolic And Diastolic Provider Name and Address Organization Details Last Updated DateTime 177.8 cm 37.1 kg/m2 082387. 93 g 59 /min 97 % 97 % 110/74 mm[Hg] Amalia Martinez [facility] 10:00:49 Date Recorded Body height Heart rate Systolic And Diastolic Systolic And Diastolic Provider Name and Address Organization Details Last Updated DateTime 05/15/2022 177.8 cm 65 /min 120/89 mm[Hg] 120/87 mm[Hg] Deb Johnson LPN [facility] 05/15/2022 10:11:39 Date Recorded Systolic And Diastolic Systolic And Diastolic Provider Name and Address Organization Details Last Updated DateTime 08/05/2023 121/92 mm[Hg] 115/88 mm[Hg] Dede Gaona [facility] 08/06/2023 09:42:42 Date Recorded Body height Body mass index (BMI) Body weight Systolic And Diastolic Provider Name and Address Organization Details Last Updated DateTime 08/13/2023 177.8 cm 37.3 kg/m2 279971.02 g 132/80 mm[Hg] Amalia Martinez [facility] 08/13/2023 10:24:43 Date Recorded Body height Body mass index (BMI) Body weight Systolic And Diastolic Provider Name and Address Organization Details Last Updated DateTime 09/02/2023 177.8 cm 37.3 kg/m2 067621.42 g 146/92 mm[Hg] Amalia Martinez [facility] 09/02/2023 11:13:54 Date Recorded Body height Body mass index (BMI) Body weight Heart rate Oxygen saturation Oxygen saturation in Arterial blood by Pulse oximetry Systolic And Diastolic Provider Name and Address Organization Details Last Updated DateTime 2 177.8 cm 36.7 kg/m2 698907. 35 g 64 /min 98 % 98 % 132/93 mm[Hg] Unique HamlinFABIO [facility] 2 09:38:15 Social History Question Answer Notes LastModified by Organizat ion Details LastModified Time Tobacco Smoking Status Former Smoker quit dec 2003 LEONOR Regalado, [facility] 03/25/2013 15:51:46 Do You Have An Advance Directive? No 01/02/11 [email or web address] Information not available 12/07/2009 Do You Wear A Helmet When Biking? Yes [email or web address] Information not available 10/20/2021 What Is Your Level Of Caffeine Consumption? Moderate 2 Cups A Day [email or web address] Information not available 05/19/2019 How Much Tobacco Do You Chew? None Information not available 03/25/2013 What Type Of Diet Are You Following? REGULAR Medateranian [email or web address] Information not available 03/13/2024 Education 4 Year College Information not available 04/09/2013 Have There Been Any Changes To Your Family Or Social Situation? No [email or web address] Information not available 10/20/2021 How Many Days In The Past Year Have You Had A Heavy Drinking Consumption (4+ Female, 5+ Male)? 0 Information not available 03/25/2013 Are There Any Guns Present In Your Home? No Information not available 04/15/2014 Do You Use Insect Repellent Routinely? No Information not available 10/20/2021 Live Alone Or With Others? With Others Information not available 04/15/2014 Patient Has Health Care Proxy Signed And In Chart No 04/11/25 Partner Brittny [email or web address] Information not available 11/21/2018 Marital Status Div 2010, In Relashionship After Some Time Information not available 05/12/2018 What Was The Date Of Your Most Recent Tobacco Screening? 11/02/2022 11/02/22 Information not available 11/02/2022 How Many Children Do You Have? 1 [email or web address] Information not available 05/19/2019 What Is Your Current Pack Years? [email or web address] Information not available 03/13/2024 What Is Your Relationship Status? [email or web address] Information not available 10/20/2021 Do You Use Your Seat Belt Or Car Seat Routinely? Yes [email or web address] Information not available 10/20/2021 Seat Belts Used Routinely Yes Information not available 04/15/2014 Smoke Alarm In Home Yes Information not available 04/15/2014 Do You Have Smoke And Carbon Monoxide Detectors In Your Home? Yes [email or web address] Information not available 10/20/2021 At What Age Did You Start Smoking Tobacco? 13 Information not available 03/25/2013 Are You Passively Exposed To Smoke? No [email or web address] Information not available 10/20/2021 How Much Tobacco Do You Smoke? No Information not available 05/10/2021 What Types Of Sporting Activities Do You Participate In? Walking [email or web address] Information not available 05/19/2019 General Stress Level Medium Information not available 12/13/2014 Do You Use Sunscreen Routinely? No [email or web address] Information not available 10/20/2021 How Many Years Have You Smoked Tobacco? 12 [email or web address] Information not available 03/13/2024 Sex: Male Functional Status Question Answer Note LastModified by Organizat ion Details LastModified Time Do you use any illicit or recreational drugs? No [email or web address] Information not available 11/02/2022 What is your level of alcohol consumption? None [email or web address] Information not available 03/13/2024 Do you or have you ever used smokeless tobacco? Never used smokeless tobacco Information not available 05/10/2021 Are you currently employed? 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 Never used electronic cigarettes Information not available 05/10/2021 What is your exercise level? Moderate 3 x a week Information not available 12/13/2014 Mental Status None recorded. Family History Relationship Description Onset Age of this Age Resolved Age Notes LastModified by Organization Details LastModified Time Father Diabetes mellitus [email or web address] Not available 2014 13:24:50 Notes:Endocrine: Family hist ory is remarkable for diabetes mellitus and hyperlipidemia. There is no family history of hypothyroidism. Family history is remarkable for obesity. Medical History No medical history recorded. Immunizations Vaccine Type Date Status Note Provider Nam e and Address Organization Details Recorded Time Td(adult) unspecified formulation 3 completed Not Available [facility] 10/04/2023 03:11:40 Tdap 2 completed Not Available [facility] 12/05/2019 02:25:37 Influenza, split virus, trivalent, preservative 2 completed Not Available [facility] 12/05/2019 02:18:37 pneumococcal polysaccharide PPV23 4 completed Not Available [facility] 12/05/2019 02:25:10 Influenza, split virus, quadrivalent, PF 6 completed Not Available [facility] 12/05/2019 02:21:08 Influenza, split virus, trivalent, preservative 4 completed Not Available [facility] 10/04/2023 03:11:40 influenza, unspecified formulation 5 completed Not Available [facility] 10/04/2023 03:11:40 Tdap 0 completed Not Available [facility] 10/04/2023 03:11:40 HPV, unspecified formulation 0 completed Not Available [facility] 10/04/2023 03:11:40 COVID-19, mRNA, LNP-S, PF, 30 mcg/0.3 mL dose 1 completed Not Available [facility] 10/04/2023 03:11:40 COVID-19, mRNA, LNP-S, PF, 30 mcg/0.3 mL dose 1 completed Not Available [facility] 10/04/2023 03:11:40 Influenza, split virus, quadrivalent, preservative 1 completed Not Available [facility] 10/04/2023 03:11:40 COVID-19, mRNA, LNP-S, PF, 100 mcg/0.5mL dose or 50 mcg/0.25mL dose 1 completed Not Available [facility] 10/04/2023 03:11:40 Influenza, split virus, trivalent, preservative 1 completed Not Available [facility] 12/05/2019 02:18:06 Past Encounters Encounter ID Performer Location Encounter Start Date Encounter Closed Date Diagnosis/Indication Diagnosis SNOMED-CT Code Diagnosis ICD10 Code Diagnosis Note [id number] Rogelio Calvo III, [place] , [facility] [place] [address] [place] [address] 03/25/2003 10:26:28 12/08/2008 02:02:29 [id number] Rogelio Calvo III, [place] , [facility] [place] [address] [place] [address] 06/24/2003 08:24:38 12/08/2008 02:02:29 [id number] [facility] [place] [address] [place] [address] 11/23/2003 07:36:44 11/23/2003 13:04:06 [id number] Dhaval Mora , [facility] [place] [address] [place] [address] 06/19/2004 09:46:30 06/19/2004 17:44:17 [id number] Rogelio Calvo III, MD , [facility] [address] [place] [address] [place] [address] 1 09/05/2004 10:52:18 09/06/2004 08:54:23 [id number] [facility] - [address] [place] [address] 09/06/2004 07:37:05 09/06/2004 08:45:43 [id number] Rogelio Calvo III, MD , [facility] [address] [place] [address] 1 01/29/2005 07:50:57 01/30/2005 08:41:17 [id number] MD GERONIMO Oates III, [facility] [address] [place] [address] 1 07/09/2005 10:36:01 07/10/2005 09:05:41 [id number] [facility] - [address] [place] [address] 1 07/30/2005 07:31:25 07/30/2005 09:04:01 [id number] Rogelio Calvo III, MD , [facility] [address] [place] [address] 1 08/21/2005 16:51:46 08/22/2005 11:01:53 [id number] Rogelio Calvo III, MD , [facility] [address] [place] [address] 1 09/06/2005 16:21:47 12/08/2008 02:02:29 [id number] [facility] - [address] [place] [address] 1 09/06/2005 07:35:57 09/06/2005 16:22:32 [id number] [facility] - [address] [place] [address] 1 11/30/2005 10:13:31 11/30/2005 10:13:58 [id number] Rogelio Calvo III, MD , [facility] [address] [place] [address] 01/03/2006 14:18:25 01/03/2006 16:23:11 [id number] [facility] - [address] [place] [address] 1 03/18/2006 10:53:13 03/18/2006 10:53:28 [id number] Rogelio Calvo III, MD , [facility] [address] [place] [address] 1 09/03/2006 15:01:16 09/03/2006 16:34:52 [id number] [facility] - [address] [place] [address] 1 10/31/2006 13:47:59 10/31/2006 13:48:05 [id number] [facility], [address] [place] [address] 1 12/03/2006 09:50:29 12/03/2006 17:14:09 [id number] Heriberto Anna OD [facility], [address] [place] [address] 1 12/03/2006 08:56:25 12/03/2006 12:56:16 [id number] [facility], [address] [place] [address] 1 01/15/2007 14:16:35 01/16/2007 09:38:47 [id number] Rogelio Calvo III, MD FP, [facility] [address] [place] [address] 1 10/20/2007 16:12:29 12/08/2008 02:02:29 [id number] Rogelio Calvo III, MD , [facility] [address] [place] [address] 1 02/05/2008 08:50:32 12/08/2008 02:02:29 [id number] Rogelio Calvo III, MD , [facility] [address] [place] [address] 1 05/04/2008 09:52:46 12/08/2008 02:02:29 [id number] [facility] - [address] [place] [address] 1 05/04/2008 09:47:28 05/04/2008 09:47:38 [id number] ZAHEER Sena, [facility] [address] [place] [address] 1 05/12/2008 08:27:37 12/08/2008 02:02:29 [id number] Meme Gilbert NP , [facility] [address] [place], [place] [address] 1 05/20/2008 13:26:53 12/08/2008 02:02:29 [id number] [facility] , [address] [place] [address] 10/25/2008 09:01:52 10/25/2008 11:32:02 [id number] [facility] , [address] [place] [address] 1 10/25/2008 00:00:00 12/08/2008 02:02:29 [id number] Rogelio Calvo III, MD FP, [facility] [address] [place] [address] 1 12/07/2009 11:29:45 12/07/2009 14:33:05 [id number] Heriberto Anna OD [facility], [facility] [address] [place] [address] 1 12/29/2008 08:31:28 12/29/2008 09:33:52 [id number] ZAHEER Martin, [facility] [address] [place] [address] 1 08/01/2010 14:33:47 08/01/2010 15:21:07 [id number] Shameka Seo D.O. , [facility] [address] [place] [address] DR [place] [address] 12/22/2010 11:15:08 12/22/2010 13:18:20 [id number] Rogelio Calvo III, MD , [facility] OFFICE [address] [place] [address] DR [place] [address] 01/02/2011 08:10:30 01/02/2011 08:58:10 [id number] Denise Morrison NP , [facility] [address] [place] [address] DR [place] [address] 07/05/2011 10:40:29 07/05/2011 11:16:55 [id number] Rogelio Calvo III, MD , [facility] OFFICE [address] [place] [address] DR [place] [address] 04/03/2012 08:17:40 04/03/2012 08:48:52 [id number] Rogelio Calvo III, MD [facility] OFFICE [address] [place] [address] DR [place] [address] 1 10/16/2012 08:15:58 10/16/2012 08:36:57 [id number] Rogelio Calvo III, MD [facility] OFFICE [address] [place] [address] DR [place] [address] 03/25/2013 15:42:19 03/26/2013 08:10:46 [id number] Rogelio Cavlo III, MD [facility] OFFICE [address] [place] [address] DR [place] [address] 1 04/09/2013 08:29:13 04/09/2013 08:54:08 [id number] Rogelio Calvo III, MD [address] [place] [address] 10/21/2013 10:20:47 10/22/2013 07:21:05 Benign essential hypertension 3108213 Blood pressure at goal Gouty arthropathy [id number] Rogelio Calvo III, MD , [address] [place] [address] 04/15/2014 08:10:20 04/15/2014 08:39:51 Benign essential hypertension 1026235 Blood pressure at goal Blood pressure NOT at goal. Adult heal th examination [id number] see Risk Assessment and Lifestyle Change Counseling section above Counseling [id number] Administra tion of pneumococcal vaccine [id number] Chronic ki dney disease stage 3 [id number] Sees nephrology every six months. Is now a vegetarian Gout 48650087 Essential hypertension 99490274 BP at goal. . Counseled re low sodium diet, regular exercise, importance of taking meds as directed. RTC 6mos. History of migraine [id number] Rogelio Calvo III, MD , [facility] [address] [place] [address] 1 10/12/2014 07:52:23 10/12/2014 08:33:51 Gouty arthropathy 041987785 Essential hypertension 44281951 BP at goal. . Counseled re low sodium diet, regular exercise, importance of taking meds as directed. RTC 6mos. [id number] Shameka Seo D.O. , [facility] [address] [place] [address] 1 10/28/2014 10:16:30 10/28/2014 10:39:12 Gout 68421647 L foot flare Will tx with colchicine as instructed below If no improvemen t will let me know- consider tx with prednisone Will get uric acid level done today. [id number] Rogelio Calvo III, MD , [facility] [address] [place] [address] 12/08/2014 08:49:31 12/08/2014 09:21:36 Ankle pain [id number] Max Mueller MD Sports Medicine, [facility] [address] [facility] [place] [address] 12/13/2014 09:44:28 12/16/2014 14:26:50 Sprain of ankle [id number] Pierce is a 39-year-ol d male with left ankle pain that this tightness was consistent with a grade 1 sprain of his ATFL. He may also have a component of Achilles tendinitis at the enthesis of the tendon. He does have a history of gout but this time I do not feel he has gout within his ankle joint. His x-rays do not demonstrat e an osteochond ral defect of the talar dome. I have advised Pierce that he completed a full course of physical therapy along with nightly icing of his ankle. He was also given an ASO style ankle brace to wear to improve his stability and aid with propriocep tion. Due to his kidney disease and having only one working kidney I have not given him a prescripti on for NSAIDs to use. He'll plan to follow up in 4 weeks for reevaluati on. [id number] Yuliya Valente, PT Physical Therapy, [address] [address] 01/03/2015 16:28:53 01/04/2015 10:52:24 Ankle pain [id number] Yuliya Valente, PT Physical Therapy, [address] [address] 01/10/2015 16:26:49 01/11/2015 08:54:11 Ankle pain 634936374 [id number] Yuliya Valente, PT Physical Therapy, [address] [address] 01/27/2015 06:28:15 01/27/2015 12:18:52 Ankle pain 571756369 [id number] Bonny Norman MD , [facility] [address] [place] [address] 04/26/2015 15:57:40 04/26/2015 16:25:43 Adult health examination 628395241 well visit make annual in light of chronic hyperurice jeremy with gout. see Risk Assessment and Lifestyle Change Counseling section above Counseling [id number] Gout 77156308 has had 12 attacks loci on first toe and ankles. (also describes Achilles and lateral midfoot pain ? attributio n) colchicine relieving as needed. 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 had held allopurino l siting ins co bothersome , but agrees to restart allopurino l with rx 90x3 likely urate will again be 9+ while off med chronicity of gout, diet triggers (does he have any?) and tx discussed [id number] MD GERONIMO Negrete, [facility] [address] [place] [address] 10/26/2015 08:01:41 10/26/2015 16:22:33 Gout 55010780 M10.9 allopurino l suppressio n has been 100% urate 9+, allopurino l therefore restarted. due to CRI has had 12 attacks loci on first toe and ankles. (also describes Achilles and lateral midfoot pain ? attributio n) colchicine relieving as needed. 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 had held allopurino l siting ins co bothersome , but agrees to restart allopurino l with rx 90x3 likely urate will again be 9+ while off med chronicity of gout, diet triggers (does he have any?) and tx discussed Iron defic iency anemia 28725620 D50.9 ? Dx lightheade d and breathless after workout. ran half marathon last month. denied donor status at [employer], after having been a donor in the past will check indices takes MVI with iron Chronic ki dney disease stage 1 630711075 N18.1 pt tells us that he has old renal scarring. States he had surgical. correction for bladder reflux at age 8 also felt he had renal stones from rhubarb consumptio n. contributo ry to gout has been stable GFR 55-60 many years, is drawn annually. Epidermal nevus 90772376 7 D22.9 i will ask other practition ers in the office to discuss removal by punch Bx. [id number] Bonny Norman MD , [facility] [address] [place], [place] [address] 05/01/2016 08:23:22 05/01/2016 09:23:35 Adult health examination 715078412 Z00.00 see Risk Assessment and Lifestyle Change Counseling section above Counseling 356643037 Z71 .9 Gout 29993392 M10.9 allopurino l suppressio n has been 100% urate 9+, allopurino l therefore restarted. due to CRI has had 12 attacks loci on first toe and ankles. (also describes Achilles and lateral midfoot pain ? attributio n) colchicine relieving as needed. 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 had held allopurino l siting ins co bothersome , but agrees to restart allopurino l with rx 90x3 likely urate will again be 9+ while off med chronicity of gout, diet triggers (does he have any?) and tx discussed Iron defic iency anemia 80690260 D50.9 ? Dx lightheade d and breathless after workout. ran half marathon last month. denied donor status at [employer], after having been a donor in the past will check indices takes MVI with iron Chronic ki dney disease stage 1 333037593 N18.1 GFR remains 55. pt tells us that he has old renal scarring.o ne kidney is 10% function per peds States he had surgical. correction for bladder reflux at age 8 also felt he had renal stones from rhubarb consumptio n. contributo ry to gout has been stable GFR 55-60 many years, is drawn annually. Epidermal nevus 12661816 7 D22.9 i will ask other practition ers in the office to discuss removal by punch Bx. [id number] Ana Laura Bettencourt, ZAHEER-C , [facility] [address] [place] [address] 10/16/2016 08:01:39 10/16/2016 12:23:21 Acute upper respiratory infection 66621793 J06.9 Educated patient that URI is a viral illness of the upper airways. It is not bacterial and does not benefit from antibiotic s. Average duration of URI is 7-10 days but in a recent trial, treatment at 7-10 days of illness with antibiotic s, intranasal steroids, or placebo did not alter natural history at 3 weeks. Recommende d symptomati c treatments including NSAIDS, semi-uprig ht sleep position, antihistam ewa at HS, limited course of nasal sympathomi metics and/or cough syrups, and nasal saline rinses with soft squeeze bottle or Neti pot. Return for fevers > 101 for 3 days, worsening sinus pain, or failure to resolve in 2-4 weeks.will give an antibiotic for him to take ONLY if he gets worse Active or passive immunization 531022150 Z23 Temporoman dibular joint disorder 51905597 M26.609 advised to go to dentist for proper assessment [id number] Julio C Cruz MD , [facility] [address] [place] [address] 01/10/2017 13:34:12 01/11/2017 11:44:55 Acute conjunctivitis 04293282 H10.32 Warm compresses . abx drops [id number] Julio C Cruz MD , [facility] [address] [place] [address] 04/11/2017 13:49:51 04/11/2017 14:20:24 Gouty arthropathy 058996687 M10.09 Gout 29089806 M10.9 Chronic ki dney disease stage 3 471824672 N18.3 [id number] Bonny Norman MD , [facility] [address] [place], [place] [address] 05/07/2017 08:02:00 05/07/2017 10:04:30 Adult health examination 788358941 Z00.00 see Risk Assessment and Lifestyle Change Counseling section above Counseling 972388096 Z71 .9 Gouty arthropathy 037908 008 M10.09 Gout 78810918 M10.9 allopurino l suppressio n has been 100% urate 9+, allopurino l therefore restarted. due to CRI has had 12 attacks loci on first toe and ankles. (also describes Achilles and lateral midfoot pain ? attributio n) colchicine relieving as needed. 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 had held allopurino l siting ins co bothersome , but agrees to restart allopurino l with rx 90x3 likely urate will again be 9+ while off med chronicity of gout, diet triggers (does he have any?) and tx discussed Iron defic iency anemia 72250691 D50.9 assymptoma tic, follow ferritin cbc 2018. 10/2015 fe sat 11%, no ferritin drawn.Inde ed the iron level came back low, which is what the [facility] tests for. You have NO anemia, your red cells and oxygen carring capacity are normal. Likely you have Low iron stores, a common concern of and frequent finding in vegetarian s. There is no abnormalit y at this point, but it is prudent to avoid Depletion of stores. You will need to supplement , be cautious of induced constipati on. 325 mg (the common form) is a high dose, usually 150 mg is adequate to replete stores without causing constipati on. ? Dx lightheade d and breathless after workout. ran half marathon last month. denied donor status at [employer], after having been a donor in the past will check indices takes MVI with iron Chronic ki dney disease stage 3 600881344 N18.3 2. Chronic kidney disease stage 3 per [facility] renal - GFR remains 55. arrange followup with [facility] and [facility] yanet wolfe LTFU 2013 [place] later Ana. IVP to assess valve function?i gave him phone numberalso ordered renal US with cc to Dr Perez to exclude urate nephropath y; bilat renal US to evaluate renal size ,disease chronicity and look for stones.(ur ate), nephropath y PMH1. CRI 3, due to reflux nephropath y as a child, had right ureter surgically reposition ed then , right kidney functions at 10 % by history 2. gout arthropopa thy pt tells us that he has old renal scarring. one kidney is 10% function per peds States he had surgical. correction for bladder reflux at age 8 also felt he had renal stones from rhubarb consumptio n. contributo ry to gout has been stable GFR 55-60 many years, is drawn annually. N18.1: Chronic kidney disease, stage 1 [id number] Bonny Norman MD , [facility] [address] [place] [address] 05/12/2018 08:19:30 05/12/2018 09:10:02 Adult health examination 996831526 Z00.00 see Risk Assessment and Lifestyle Change Counseling section above Counseling 995555416 Z71 .9 Depression screening 171 038879 Z13.89 depression screening tool administer ed, entered into emr, scored and discussed, time greater than 7.5 minutes Gouty arthropathy 254539 008 M10.09 see below Gout 28778206 M10.9 partially compliant with allopurino l- gets toe attacks tho when Non compliant. allopurino l suppressio n has been 100% urate 9+, allopurino l therefore restarted. due to CRIfalls to 5 on allopurino l has had 12 attacks loci on first toe and ankles. (also describes Achilles and lateral midfoot pain ? attributio n) colchicine relieving as needed. 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 had held allopurino l siting ins co bothersome , but agrees to restart allopurino l with rx 90x3 likely urate will again be 9+ while off med chronicity of gout, diet triggers (does he have any?) and tx discussed Iron defic iency anemia 86128991 D50.9 assymptoma tic, follow ferritin cbc 2018.not taking supplement Note he has been eating red meat since 2015, may no longer need supplement 10/2015 fe sat 11%, no ferritin drawn.Inde ed the iron level came back low, which is what the [facility] tests for. You have NO anemia, your red cells and oxygen carring capacity are normal. Likely you have Low iron stores, a common concern of and frequent finding in vegetarian s. There is no abnormalit y at this point, but it is prudent to avoid Depletion of stores. You will need to supplement , be cautious of induced constipati on. 325 mg (the common form) is a high dose, usually 150 mg is adequate to replete stores without causing constipati on. ? Dx lightheade d and breathless after workout. ran half marathon last month. denied donor status at [employer], after having been a donor in the past will check indices takes MVI with iron Chronic ki dney disease stage 3 831395089 N18.3 Chronic kidney disease stage 3 per [facility] renal - GFR remains 55.followe d by Stalin annually ;last 12/2017. arrange followup with [facility] renal and [facility]x associates yanet wolfe LTFU 2012 [place] later Ana. IVP to assess valve function?i gave him phone numberalso ordered renal US with cc to Dr Perez to exclude urate nephropath y; bilat renal US to evaluate renal size ,disease chronicity and look for stones.(ur ate), nephropath y PMH1. CRI 3, due to reflux nephropath y as a child, had right ureter surgically reposition ed then , right kidney functions at 10 % by history 2. gout arthropopa thy pt tells us that he has old renal scarring. one kidney is 10% function per peds States he had surgical. correction for bladder reflux at age 8 also felt he had renal stones from rhubarb consumptio n. contributo ry to gout has been stable GFR 55-60 many years, is drawn annually. 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.1 right sided Vesicoureteric reflux 19 8283318 N13.9 underwent corrective reflux surgery (deflux surgery )age 8remains with atrophic right kidney Calculus o f kidney and ureter 864583196 N20.2 seen on US, Stalin Secondary hyperparathyroidism 62392362 E21.1 IPTH 70's low 80's (-66) Family his tory of diabetes mellitus 642908417 Z83.3 Vitamin D deficiency 347 26644 E55.9 slightly low in pastoff supplement sagreed to check frank in light of high PTH [id number] Bonny Norman MD , [facility] [address] [place], [place] [address] 05/19/2019 08:32:07 05/19/2019 09:25:18 Adult health examination 895519665 Z00.00 see Risk Assessment and Lifestyle Change Counseling section above Counseling 214638080 Z71 .9 shoshana and lung cancer in one of many studies discussedh azard ratio 1.14incide nce 1.6 vs 1.2 BMJ 2018 Depression screening 171 425618 Z13.89 depression screening tool administer ed, entered into emr, scored and discussed, time greater than 7.5 minutes Gouty arthropathy 847343 008 M10.09 see below Gout 86744536 M10.9 partially compliant with allopurino l- gets toe attacks tho when Non compliant. allopurino l suppressio n has been 100% urate 9+, allopurino l therefore restarted. due to CRIfalls to 5 on allopurino l has had 12 attacks loci on first toe and ankles. (also describes Achilles and lateral midfoot pain ? attributio n) colchicine relieving as needed. 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 had held allopurino l siting ins co bothersome , but agrees to restart allopurino l with rx 90x3 likely urate will again be 9+ while off med chronicity of gout, diet triggers (does he have any?) and tx discussed Iron defic iency anemia 61179811 D50.9 follow ferritin.* assymptoma tic, follow ferritin at 12 ,in 2018.non anemic not taking supplement Note he has been eating red meat since 2015, may no longer need supplement 10/2015 fe sat 11%, no ferritin drawn.Inde ed the iron level came back low, which is what the red cross tests for. You have NO anemia, your red cells and oxygen carring capacity are normal. Likely you have Low iron stores, a common concern of and frequent finding in vegetarian s. There is no abnormalit y at this point, but it is prudent to avoid Depletion of stores. You will need to supplement , be cautious of induced constipati on. 325 mg (the common form) is a high dose, usually 150 mg is adequate to replete stores without causing constipati on. ? Dx lightheade d and breathless after workout. ran half marathon last month. denied donor status at [employer], after having been a donor in the past will check indices takes MVI with iron Chronic ki dney disease stage 3 716112226 N18.3 Chronic kidney disease stage 3 per [facility] renal - GFR 55, 47followed by Stalin annually ;last 12/2017. arrange followup with [facility] renal and [facility] associates yanet wolfe LTFU 2012 [place] later Ana. IVP to assess valve function?i gave him phone numberalso ordered renal US with cc to Dr Perez to exclude urate nephropath y; bilat renal US to evaluate renal size ,disease chronicity and look for stones.(ur ate), nephropath y PMH1. CRI 3, due to reflux nephropath y as a child, had right ureter surgically reposition ed then , right kidney functions at 10 % by history 2. gout arthropopa thy pt tells us that he has old renal scarring. one kidney is 10% function per peds States he had surgical. correction for bladder reflux at age 8 also felt he had renal stones from rhubarb consumptio n. contributo ry to gout has been stable GFR 55-60 many years, is drawn annually. N18.1: Chronic kidney disease, stage 1 Atrophy of kidney 1976 N26.1 right [id number] (see below) Vesicoureteric reflux 19 7275160 N13.9 underwent corrective reflux surgery (deflux surgery )age 8remains with atrophic right kidney Calculus o f kidney and ureter 513287406 N20.2 seen on US, Stalin, have not increased in size, follows every 6 months03/07 19Right kidney: Renal atrophy, small kidney measuring 6.1 x 3.0 x 2.8 cm. There is diffuse thinning of the cortex and increased cortical echogenici ty. No mass, calculus or hydronephr osis. Left kidney: Normal in size and echogenici ty, 12.2 x 5.1 x 4.4 cm. There is no hydronephr osis or mass. There are at least 4 measured calculi in the left kidney, largest 7 mm. Secondary hyperparathyroidism 31034114 E21.1 PTH on slow rise, followed [facility] , last .*IPTH 70's low 80's (-66)cri vs low vit d Family his tory of diabetes mellitus 972886970 Z83.3 labs with verona Vitamin D deficiency 347 98719 E55.9 supplement s in the wintertime . 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 , [facility] [address] [place] [address] 04/26/2020 11:31:31 04/27/2020 12:42:51 Pleuritic pain 2026765 R07.81 more right sidedhas noticed for 5 years- but worse in past 3 daysno cough, no fever, no SOB Gastroesop hageal reflux disease 916850466 K21.9 5 years of right sided chest discomfort - deep- occasional ly has a sense he needs to burplast 3 days more prominent- radiates to backwill do trial of PPI for 2 weeks [id number] Bonny Norman MD , [facility] [address] [place] [address] 05/10/2021 07:52:59 05/10/2021 08:37:40 Depression screening 410747016 Z13.89 depression screening tool administer ed, entered into emr, scored and discussed, time greater than 7.5 minutes Gouty arthropathy 164480 008 M10.09 see below Gout 31635564 M10.9 partially compliant with allopurino l- gets toe attacks tho when Non compliant. allopurino l suppressio n has been 100%urate 9+, allopurino l therefore restarted. due to CRIfalls to 5 on allopurino l has had 12 attacks loci on first toe and ankles.(al so describes Achilles and lateral midfoot pain ? 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 You have NO anemia, your red cells and oxygen carring capacity are normal. Likely you have Low iron stores, a common concern of and frequent finding in vegetarian s. There is no abnormalit y at this point, but it is prudent to avoid Depletion of stores. You will need to supplement , be cautious of induced constipati on. 325 mg (the common form) is a high dose, usually 150 mg is adequate to replete stores without causing constipati on. ? Dx lightheade d and breathless after workout. ran half marathon last month. denied donor status at [employer], after having been a donor in the past will check indices takes MVI with iron Chronic ki dney disease stage 3 [id number] N18.30 Chronic kidney disease stage 3 per [facility] renal - GFR 55, 47, 50followed by Stalin annually ;last 12/2017. arrange followup with [facility] LTFU 2012 Poppel later Ana. IVP to assess function?i gave him phone numberalso ordered renal US with cc to Dr Ana to exclude urate nephropath y; bilat renal US to evaluate renal size ,disease chronicity and look for stones.(ur ate), nephropath y PMH1. CRI 3, due to reflux nephropath y as a child, had right ureter surgically reposition ed then , right kidney functions at 10 % by history 2. gout arthropopa thy pt tells us that he has old renal scarring. one kidney is 10% function per peds States he had surgical. correction for bladder reflux at age 8 also felt he had renal stones from rhubarb consumptio n. contributo ry to gout has been stable GFR 55-60 many years, is drawn annually. N18.1: Chronic kidney disease, stage 1 Atrophy of kidney 1976 N26.1 right [id number] (see below) Vesicoureteric reflux 19 8840164 N13.9 underwent corrective reflux surgery (deflux surgery )age 8remains with atrophic right kidney Calculus o f kidney and ureter 783448193 N20.2 seen on US, Stalin, have not increased in size, follows every 6 months03/07 19Right kidney: Renal atrophy, small kidney measuring 6.1 x 3.0 x 2.8 cm. There is diffuse thinning of the cortex and increased cortical echogenici ty. No mass, calculus or hydronephr osis. Left kidney: Normal in size and echogenici ty, 12.2 x 5.1 x 4.4 cm. There is no hydronephr osis or mass. There are at least 4 measured calculi in the left kidney, largest 7 mm. Secondary hyperparathyroidism 13836537 E21.1 PTH on slow rise, followed Stalin , last .*IPTH 70's low 80's (-66)cri vs low vit d Family his tory of diabetes mellitus 958122652 Z83.3 labs with verona Vitamin D deficiency 347 07893 E55.9 supplement s in the wintertime . stable low 20's at [facility] office*sli ghtly low in pastoff supplement sagreed to check frank in light of high PTH Pain in right hand 19220 09670 26387 M79.641 there is a tophus like nodularity radial aspect of the right middle (long )digit PIPimage to document addendum, normal joint with non specific soft tissue density- while the density may be a tophus (usually dont calcify) they usually are associated with adjacent omar change Tendinitis of right patellar tendon 9487814700 18781 M76.51 with small effusionof ten has to use railing assistfeel s it walking down hillsDx discussedo ften these will resolve on own.P/rest motrin and return for injection aspiration if doesnt resolve over next few weeks Foot pain 24668506 M79.6 73 05/10/2021 here with new foot pain and lipomatous masses over joints- wondering if related to his gout or hyperPTH ism lump on R third finger, L elbow, and L knee. elbow one is new and the other 2 are growing in size. not painful or red. Also requesting rheum referral for pain in feet after normal activity of walking. Pt suspects he has these same growths in his feet that aer in his other joints. on and off allopurino lentire ROS is unchanged x newly noted intraderma l rubbery masses (distal margin of Left patella <1cm and >1cm over left olecranon) and forefoot pain disallows 3 mile walks, needs assistance stairsteps refer rheum [id number] Bonny Norman MD , [facility] [place] [address] [place], [place] [address] 10/20/2021 15:04:48 10/20/2021 16:05:51 Adult health examination 805455216 Z00.00 well examfor oct 2021 wellness I delilah anemia lipid and A1csee Risk Assessment and Lifestyle Change Counseling section above Counseling 989186161 Z71 .9 including cardiovasc ular risk reduction counseling Depression screening 171 317117 Z13.31 depression screening tool administer ed, entered into emr, scored and discussed, time greater than 7.5 minutes Screening for alcohol abuse 854645123 Z13.39 Gouty arthropathy 536075 008 M10.09 see below Gout 14133564 M10.9 partially compliant with allopurino l- gets toe attacks tho when Non compliant. colchicine as needed allopurino l suppressio n has been 100%urate 9+, allopurino l therefore restarted. due to CRIfalls to 5 on allopurino l has had 12 attacks loci on first toe and ankles.(al so describes Achilles and lateral midfoot pain ? attributio n)alexandria ne relieving as needed.is a runner so appears has no omar erosions.h ad held allopurino l citing ins co bothersome , but agrees to restart allopurino l with rx [id number] urate will again be 9+ while off medchronic ity of gout, diet triggers (does he have any?) and tx discussed Iron defic iency anemia 99597353 D50.9 follow ferritin. ordered 10/2021*as symptomati c, follow ferritin at 12 ,in 2018.non anemicnot taking supplement Note he has been eating red meat since 2015, may no longer need supplement 10/2015 fe sat 11%, no ferritin drawn.Inde ed the iron level came back low, which is what the S[facility]X tests for. You have NO anemia, your red cells and oxygen carring capacity are normal. Likely you have Low iron stores, a common concern of and frequent finding in vegetarian s. There is no abnormalit y at this point, but it is prudent to avoid Depletion of stores. You will need to supplement , be cautious of induced constipati on. 325 mg (the common form) is a high dose, usually 150 mg is adequate to replete stores without causing constipati on. ? Dxlighthea ded and breathless after workout.ra n half marathon last month.katherine ed donor status at [facility], after having been a donor in the pastwill check indicestak es MVI with iron Chronic ki dney disease stage 3 841687004 N18.30 Chronic kidney disease stage 3 per [facility] - GFR 55, 47, 50followed by Stalin annually ;last 12/2017. [facility] office. arrange followup with [facility] LTFU 2013 Po[place] later Ana. IVP to assess function?i gave him phone numberalso ordered renal US with cc to Dr Perez to exclude urate nephropath y; bilat renal US to evaluate renal size ,disease chronicity and look for stones.(ur ate), nephropath y PMH1. CRI 3, due to reflux nephropath y as a child, had right ureter surgically reposition ed then , right kidney functions at 10 % by history 2. gout arthropopa thy pt tells us that he has old renal scarring. one kidney is 10% function per peds States he had surgical. correction for bladder reflux at age 8 also felt he had renal stones from rhubarb consumptio n. contributo ry to gout has been stable GFR 55-60 many years, is drawn annually. 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 There is diffuse thinning of the cortex and increased cortical echogenici ty. No mass, calculus or hydronephr osis. Left kidney: Normal in size and echogenici ty, 12.2 x 5.1 x 4.4 cm. There is no hydronephr osis or mass. There are at least 4 measured calculi in the left kidney, largest 7 mm. Secondary hyperparathyroidism 05132880 E21.1 PTH on slow rise, followed Stalin , last 97.*IPTH 70's low 80's (-66)cri vs low vit d Family his tory of diabetes mellitus 468623430 Z83.3 labs with Manfred delilah A1c10/2021 as he is unsure if he follows this Vitamin D deficiency 347 44244 E55.9 supplement s in the wintertime . stable low 20's at [facility] office*sli ghtly low in pastoff supplement sagreed to check frank in light of high PTH Pain in right hand 82094 43971 50634 M79.641 there is a tophus like nodularity radial aspect of the right middle (long )digit PIPimage to documentpt concerned urate runs as high as 9.5- but as low as 6is based on compliance with allopurino l addendum, normal joint with non specific soft tissue density- while the density may be a tophus (usually dont calcify) they usually are associated with adjacent omar change Tendinitis of right patellar tendon 2490570336 04228 M76.51 with small effusionof ten has to use railing assistfeel s it walking down hillsDx discussedo ften these will resolve on own.P/rest motrin and return for injection aspiration if doesnt resolve over next few weeks Foot pain 30864991 M79.6 73 await nov 2021 apptpain has eased*05/10 here with new foot pain and lipomatous masses over joints- wondering if related to his gout or hyperPTH ism lump on R third finger, L elbow, and L knee. elbow one is new and the other 2 are growing in size. not painful or red. Also requesting rheum referral for pain in feet after normal activity of walking. Pt suspects he has these same growths in his feet that aer in his other joints. on and off allopurino lentire ROS is unchanged x newly noted intraderma l rubbery masses (distal margin of Left patella <1cm and >1cm over left olecranon) and forefoot pain disallows 3 mile walks, needs assistance stairsteps refer rheum Obesity 754717958 E66.9 lets curtail his 5 pound a year weight gain annually 2009-2020h is vice is cookies at late eveninggoa l stop gaining 1/2 pd a months [id number] Danielle Anderson . , [facility] [place] [address] [place] [address] 04/30/2022 10:56:06 04/30/2022 11:23:17 Elevated blood-pressure reading without diagnosis of hypertension 389173304 R03.0 Blood pressure in both arms when repeated was at target. I have asked him to continue to track blood pressure, decrease salt intake, stay active, return for nurse visit here in a couple of weeks and bring home blood pressure monitor to compare. Call with any concerns. Chronic ki dney disease stage 3 976418048 N18.30 Sees nephrology on a regular basis. Most recent creatinine was 1.5 with GFR of 59. Would consider lisinopril if blood pressure treatment required since has tolerated it well in the past. Secondary hyperparathyroidism 82812725 E21.1 mild elevation of PTH, sees nephrology . [id number] Bonny Norman MD , [facility] [place] [address] [place] [address] 05/15/2022 09:40:08 05/15/2022 10:40:03 Elevated blood-pressure reading without diagnosis of hypertension 798141882 R03.0 [id number] Wilian Thornton MD , [facility] [place] [address] [place] [address] 11/02/2022 09:16:13 11/02/2022 10:55:25 Adult health examination 658840209 Z00.00 Counseling 303722277 Z71 .9 including cardiovasc ular risk reduction counseling Depression screening 171 300970 Z13.31 depression screening tool administer ed, entered into emr, scored and discussed, time greater than 7.5 minutes Screening for alcohol abuse 423804106 Z13.39 Screening colonoscopy 44 8874888 Z12.11 [id number] Jatin Bonds MD Endoscopy , [facility] [address] [place] [address] 03/15/2023 10:29:10 03/15/2023 12:55:45 [id number] Bonny Norman MD , [facility] [place] [address] [place] [address] 08/13/2023 10:07:12 08/13/2023 15:30:18 Benign essential hypertension 5427162 I10 he clearly has HThome cuff read diastolic of 90 which is what we near always obtain herecreat runs 1.[address] Tammy gant had stopped his lisinopril 10 when he c.o lightheade dness in 2011all options reviewed\R x diltiazem 120poss edema risk discussedi neligible for HCTZ due to goutrto 2 weeks with home BP Gout 55612343 M10.9 partially compliant with allopurino l- gets toe attacks tho when Non compliant. colchicine as needed about very 3-4 months allopurino l suppressio n has been 100%urate 9+, allopurino l therefore restarted. due to CRIfalls to 5 on allopurino l has had 12 attacks loci on first toe and ankles.(al so describes Achilles and lateral midfoot pain ? attributio n)colchici ne relieving as needed.is a runner so appears has no omar erosions.h ad held allopurino l citing ins co bothersome , but agrees to restart allopurino l with rx [id number] urate will again be 9+ while off medchronic ity of gout, diet triggers (does he have any?) and tx discussed Chronic ki dney disease stage 3 609522290 N18.30 Chronic kidney disease stage 3 per [facility] renal - GFR 55, 47, 50followed by Stalin annually ;last 12/2017. [facility] office. arrange followup with [facility] renal and Tx associates LTFU 2013 Po[place] later Ana. IVP to assess function?i gave him phone numberalso ordered renal US with cc to Dr Perez to exclude urate nephropath y; bilat renal US to evaluate renal size ,disease chronicity and look for stones.(ur ate), nephropath y PMH1. CRI 3, due to reflux nephropath y as a child, had right ureter surgically reposition ed then , right kidney functions at 10 % by history 2. gout arthropopa thy pt tells us that he has old renal scarring. one kidney is 10% function per peds States he had surgical. correction for bladder reflux at age 8 also felt he had renal stones from rhubarb consumptio n. contributo ry to gout has been stable GFR 55-60 many years, is drawn annually. N18.1: Chronic kidney disease, stage 1 [id number] Bonny Norman MD , [facility] [place] [address] [place] [address] 09/02/2023 10:39:36 09/22/2023 19:47:00 Benign essential hypertension 2096138 I10 09/02/2023 he stopped taking the diltiazemr etained fluid bloated squishy all over, jiggling like jello in a car, also new anal fissure o n diltiazem, will restart (from 2007, 2010) lisinopril at suggestion via phone by DR gant whom he will see Sep 2023*he clearly has HThome cuff read diastolic of 90 which is what we near always obtain herecreat runs 1.[address] GantDR stalin had stopped his lisinopril 10 when he c.o lightheade dness in 2011all options reviewed\R x diltiazem 120 (filled 08/13/2023) poss edema risk discussedi neligible for HCTZ due to goutrto 2 weeks with home BP Secondary hyperparathyroidism 06628585 E21.1 PTH on slow rise, followed Stalin , last 97.*IPTH 70's low 80's (-66)cri vs low vit d [id number] Bonny Norman MD , [facility] [place] [address] [place], [place] [address] 03/13/2024 09:50:59 03/13/2024 12:16:58 Adult health examination 059877760 Z00.00 well exam see Risk Assessment and Lifestyle Change Counseling section above Depression screening 171 748294 Z13.31 depression screening tool administer ed Screening for alcohol abuse 253885785 Z13.39 Alcohol use screening tool administer ed Screening for malignant neoplasm of prostate 189242398 Z12.5 Benign ess ential hypertension 1871353 I10 bp at low goal , cont shoshana*2022 he stopped taking the diltiazemr etained fluid bloated squishy all over, jiggling like jello in a car, also new anal fissure o n diltiazem, will restart (from 2007, 2010) lisinopril at suggestion via phone by DR gant whom he will see Sep 2023*he clearly has HThome cuff read diastolic of 90 which is what we near always obtain herecreat runs 1.[address] GantDR stalin had stopped his lisinopril 10 when he c.o lightheade dness in 2011all options reviewed\R x diltiazem 120 (filled 08/13/2023) poss edema risk discussedi neligible for HCTZ due to goutrto 2 weeks with home BP Secondary hyperparathyroidism 66606514 E21.1 PTH on slow rise, followed Stalin , last 97.*IPTH 70's low 80's (-66)cri vs low vit d Gout 43125395 M10.9 partially compliant with allopurino l- gets toe attacks tho when Non compliant. colchicine as needed about very 3-4 months allopurino l suppressio n has been 100%urate 9+, allopurino l therefore restarted. due to CRIfalls to 5 on allopurino l has had 12 attacks loci on first toe and ankles.(al so describes Achilles and lateral midfoot pain ? attributio n)colchici ne relieving as needed.is a runner so appears has no omar erosions.h ad held allopurino l citing ins co bothersome , but agrees to restart allopurino l with rx [id number] urate will again be 9+ while off medchronic ity of gout, diet triggers (does he have any?) and tx discussed Chronic ki dney disease stage 3 546069081 N18.30 Chronic kidney disease stage 3 per [facility] renal - GFR 55, 47, 50followed by Gant annually [facility] office. arrange followup with [facility] LTFU 2013 [place] later Ana. IVP to assess function?i gave him phone numberalso ordered renal US with cc to Dr Perez to exclude urate nephropath y; bilat renal US to evaluate renal size ,disease chronicity and look for stones.(ur ate), nephropath y PMH1. CRI 3, due to reflux nephropath y as a child, had right ureter surgically reposition ed then , right kidney functions at 10 % by history 2. gout arthropopa thy pt tells us that he has old renal scarring. one kidney is 10% function per peds States he had surgical. correction for bladder reflux at age 8 also felt he had renal stones from rhubarb consumptio n. contributo ry to gout has been stable GFR 55-60 many years, is drawn annually. N18.1: Chronic kidney disease, stage 1 Counseling 981151119 Z71 .9 including cardiovasc ular risk reduction counseling Gouty arthropathy 624558 008 M10.09 see belowtakes 2 colchcine when he feeps at attack coming onoccurs 3 times a yeearhydra tion helps Iron defic iency anemia 65303092 D50.9 no longer need to follow, he hs not had anemia since 2013. takes Fe supp*follo w ferritin 29 in 2020*assym ptomatic, follow ferritin at 12 ,in 2018.non anemicnot taking supplement Note he has been eating red meat since 2015, may no longer need supplement 10/2015 fe sat 11%, no ferritin drawn.Inde ed the iron level came back low, which is what the red cross tests for. You have NO anemia, your red cells and oxygen carring capacity are normal. Likely you have Low iron stores, a common concern of and frequent finding in vegetarian s. There is no abnormalit y at this point, but it is prudent to avoid Depletion of stores. You will need to supplement , be cautious of induced constipati on. 325 mg (the common form) is a high dose, usually 150 mg is adequate to replete stores without causing constipati on. ? Dxlighthea ded and breathless after workout.ra n half marathon last month.katherine ed donor status at [employer], after having been a donor in the pastwill check indicestak es MVI with iron Atrophy of kidney 1976 005 N26.1 right [id number] (see below) Vesicoureteric reflux 19 7127116 N13.9 underwent corrective reflux surgery (deflux surgery )age 8remains with atrophic right kidney Calculus o f kidney and ureter 350437823 N20.2 seen on US, Stalin, have not increased in size, follows every 6 months03/07 19Right kidney: Renal atrophy, small kidney measuring 6.1 x 3.0 x 2.8 cm. There is diffuse thinning of the cortex and increased cortical echogenici ty. No mass, calculus or hydronephr osis. Left kidney: Normal in size and echogenici ty, 12.2 x 5.1 x 4.4 cm. There is no hydronephr osis or mass. There are at least 4 measured calculi in the left kidney, largest 7 mm. Family his tory of diabetes mellitus 676025756 Z83.3 labs with reddSuleman delilah A1c10/2021 as he is unsure if he follows this Vitamin D deficiency 347 44512 E55.9 supplement s in the wintertime . stable low 20's at [facility] office*sli ghtly low in pastoff supplement sagreed to check frank in light of high PTH Obesity 162139609 E66.9 34 pounds in 7 yearsadmiy ts to many vices*lets curtail his 5 pound a year weight gain annually 2009-2020h is vice is cookies at late eveninggoa l stop gaining 1/2 pd a months Health Concerns Section Related Observation LastModified by Organization Detai ls LastModified Time None Recorded Concern Status LastModified by Organization Details LastModified Time None Recorded Advance Directives Directive N: 01/02/11 Payers Insurance Date Sequence Insurance Name Policy Number Policy Menjivar Covered Member ID Menjivar Member ID Guarantor Name 03/16/2025 1 [facility] [place] [id number] Pierce A Chen [id number] Pierce A Chen 03/16/2025 1 [facility] [place] [place] Javid Camargo Chen [id number] Pierce A Chen 03/16/2025 1 [facility] [place] [facility] ([facility] [place] [id number] Pierce A Chen [id number] Pierce A Chen 03/16/2025 1 [facility] ([facility] [place] [id number] Pierce A Chen [id number] Pierce A Chen Notes Date Note Type Note Provider Name and Address Organization Details Recorded Time 2 text/html Physical Exam/MaleReported bypatient.PHAPatient is here for a Wellness Visit. He describes his health status as good. Patient's health is the same as last year.Risk Assessment and Lifestyle Change Counseling-male 18-39Reported bypatient.Coronary Artery Disease Risk Assessment:Eats a diet low in fats and high in fiber; No personal history of hypertension; No personal history of diabetes Lung Cancer Risk Assessment:No asbestos exposure Risk for Sexually transmitted disease Assessment:Monogamous relationship Cognitive/Behavioral Risk Assessment:No history of depression Safety Risk Assessment:uses helmet for high velocity activities; uses seat belts Diet:Counseled about eating a diet low in trans and saturated fats and high in fiber, fruits and vegetables Exercise counselingDiscussed the importance of daily physical activity Safety:Counseled about protecting skin from the sun and lowering the risk of skin cancer workDiscussed the importance of a health care proxy and advanced directives Emergerncy Department and Urgent Care:Counseled about appropriate use of the emergency room and availability of urgent care at [facility] Doing well, he still gets gout occasionally, but uric acid is down. Renal function is stable with his minimal CRF from childhood illness. Followed by [facility] yearly. ? hearing worse? Wilian Thornton MD [address] [place], [phone], [facility] 11/02/2022 10:18:08 3 text/html Physical Exam/MaleReported bypatient.PHAPatient is here for a Wellness Visit. He describes his health status as good. Patient's health is the same as last year.Risk Assessment and Lifestyle Change Counseling-male 18-39Reported bypatient.Coronary Artery Disease Risk Assessment:Eats a diet low in fats and high in fiber; No personal history of hypertension; No personal history of diabetes Lung Cancer Risk Assessment:No asbestos exposure Risk for Sexually transmitted disease Assessment:Monogamous relationship Cognitive/Behavioral Risk Assessment:No history of depression Safety Risk Assessment:uses helmet for high velocity activities; uses seat belts Diet:Counseled about eating a diet low in trans and saturated fats and high in fiber, fruits and vegetables Exercise counselingDiscussed the importance of daily physical activity Safety:Counseled about protecting skin from the sun and lowering the risk of skin cancer workDiscussed the importance of a health care proxy and advanced directives Emergerncy Department and Urgent Care:Counseled about appropriate use of the emergency room and availability of urgent care at [facility] Doing well, he still gets gout occasionally, but uric acid is down. Renal function is stable with his minimal CRF from childhood illness. Followed by [facility] yearly. ? hearing worse? Bonny Norman MD [address] [place] [address], [phone], [facility] 09/22/2023 17:07:37 4 text/html Physical Exam/MaleReported bypatient.PHAPatient is here for a Wellness Visit. He describes his health status as good. Patient's health is the same as last year.Risk Assessment and Lifestyle Change Counseling-male 18-39Reported bypatient.Coronary Artery Disease Risk Assessment:Eats a diet low in fats and high in fiber; No personal history of hypertension; No personal history of diabetes Lung Cancer Risk Assessment:No asbestos exposure Risk for Sexually transmitted disease Assessment:Monogamous relationship Cognitive/Behavioral Risk Assessment:No history of depression Safety Risk Assessment:uses helmet for high velocity activities; uses seat belts Diet:Counseled about eating a diet low in trans and saturated fats and high in fiber, fruits and vegetables Exercise counselingDiscussed the importance of daily physical activity Safety:Counseled about protecting skin from the sun and lowering the risk of skin cancer workDiscussed the importance of a health care proxy and advanced directives Emergerncy Department and Urgent Care:Counseled about appropriate use of the emergency room and availability of urgent care at [facility] Doing well, he still gets gout occasionally, but uric acid is down. Renal function is stable with his minimal CRF from childhood illness. Followed by [facility] yearly. ? hearing worse? Bonny Norman MD [address] [place] [address], [phone], [facility] 03/13/2024 10:45:33
--- OUTSIDE RECORDS SUMMARY | 2025-05-26 15:25 | XMS_ITS | Clinical Summary ---
Author Organization [facility] Facility Address [address] [facility] [address] [place] [id number] Care Team Providers Care Mems Integration Engineer Name Role Phone Trev Norman MD Primary Care Provider [phone] Allergies No known active allergies Medications Multiple Vitamins-Minera ls (VITAMIN D3 COMPLETE PO) Take by mouth Active colchicine 0.6 MG tablet Active ergocalciferol 1.25 MG (10367 UT) capsule TAKE 1 CAPSULE (50,000 UNITS [...] Office Visit [facility] [address] [phone] Jordan Sanchez MD [address] [phone] Health Maintenance Due Date Last Done Comments Hepatitis B Vaccine (1 of 3 - 19+ 3-dose series) 1995 Pneumococcal Vaccine: Peds ( 0 to 5 Years) and At-Risk Patients (6 to 49 Years) (2 of 2 - PCV) 04/15/2015 04/15/2014 Influenza Vaccine (#1) 2025 1, 10/16/2016, 08/26/2015 Pneumococcal Vaccine: 50+ Years Discontinued 4 Insurance [employer] Care Teams Mems Integration Engineer Relationship Specialty Start Date End Date Trev Norman MD [address] [place] [phone] PCP - General 11/28/20
[2025-05-26] MEDS: iohexoL 350 MG/ML 100 ML INFUS..BTL 60 ML IV (16:35)
== END 2025-05-26 15:01 | disposition home or self-care (01) ==
LOC: HO.CT 15:00
PROVIDERS: PCP Internal Medicine; Visit Provider Physician Assistant Medical
DX: R07.0 Pain in throat (principal); Z76.89 Persons encountering health services in other specified circumstances
CPT/HCPCS: 70491; Q9967

== ENCOUNTER → 2025-05-26 15:06 | Outpatient (BNV) | payer OTHER, SELFPAY | PROVIDERS: PCP Internal Medicine; Visit Provider Radiology Diagnostic Radiology | DX: R07.0 Pain in throat (principal) | CPT/HCPCS: 70491 ==